=== PATIENT | male | born 1955 | race Caucasian/White ===

== ENCOUNTER 2021-08-04 23:21 | Emergency (ER) | payer SELFPAY ==
[2021-08-05] MEDS ORDERED: Lidocaine 1% PF 5 ML VIAL ONE (00:45)
[2021-08-05] MEDS ORDERED: HYDROcodone/Acetaminophen 5/325 mg Tablet ONE (00:47)
== END 2021-08-05 02:01 | disposition home or self-care (01) ==
LOC: ERS 23:21
DX: S52.572A Other intraarticular fracture of lower end of left radius, initial encounter for closed fracture (principal); I12.9 Hypertensive chronic kidney disease with stage 1 through stage 4 chronic kidney disease, or unspecified chronic kidney disease; N18.9 Chronic kidney disease, unspecified; Z79.899 Other long term (current) drug therapy; W19.XXXA Unspecified fall, initial encounter
CPT/HCPCS: 25660